=== PATIENT | male | born 1960 | race Caucasian/White ===

== ENCOUNTER 2016-08-23 18:40 | Emergency (ER) | payer OTHER ==
[~2016-08-23] VITALS: Ht 180.3 cm; Wt 150.0 kg
[~2016-08-23 18:40] MED LIST: LISI10TA PO; LOPROX TOP
[2016-08-23 18:44] VITALS: PULSE 71; RESP 28; O2SAT 99
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
[2016-08-23] MEDS ORDERED: Ondansetron 2 mg/mL 2 mL Inj IVPUSH PRN (19:10)
[2016-08-23] MEDS: HYDROmorphone 0.5 mg/0.5 mL iSecure Syringe IVPUSH PRN ×3 (19:22→21:13)
[2016-08-23 19:49] LABS: BASOPHILS % (AUTO) 0.6 % (0-3); MONOCYTES % (AUTO) 6.3 % (4-12); Mean Corpuscular Hemoglobin 30.3 pg (27.0-35.0); Mean Corpuscular Volume 95.1 fL (81-100); NEUTROPHILS % (AUTO) 75.7 % (40-74); Platelet Count 189 bil/L (150-400)
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
[2016-08-23] MEDS: HYDROmorphone 1 mg/mL Inj IVPUSH PRN ×3 (21:14→22:33)
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
[2016-08-23] MEDS ORDERED: _HYDROcodone/APAP 5-325 mg Tablet PO PRN (22:45)
[2016-08-23 23:19] VITALS: BP 132/88; PULSE 85; RESP 16; O2SAT 99
== END 2016-08-23 23:21 | disposition home or self-care (01) ==
LOC: SED 18:40
DX: S29.8XXA Other specified injuries of thorax, initial encounter (principal); V86.59XA Driver of other special all-terrain or other off-road motor vehicle injured in nontraffic accident, initial encounter; Y92.410 Unspecified street and highway as the place of occurrence of the external cause; Y93.55 Activity, bike riding; Y99.8 Other external cause status; I10 Essential (primary) hypertension
CPT/HCPCS: 71020; 71260; 74177; 80053; 83690; 85025; 96374; 96375; 96376; 99285; J1170; J2405; J3360; Q9967